=== PATIENT | female | born 1945 | race Caucasian/White ===

== ENCOUNTER 2017-02-09 05:52 | Inpatient (IN) | payer OTHER ==
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
[2017-02-09] MEDS ORDERED: ONDANSETRON 4 MG/2 ML VIAL ONE (06:14)
[2017-02-09] MEDS ORDERED: dilTIAZem HCL 125 MG/25 ML - 25 ML VIAL ONE ×3 (06:15→10:08)
[2017-02-09 06:21] LABS: BASOPHIL 0.6 % (0-2.0); EOSINOPHIL 2.7 % (0-4.5); MCHC 33.7 g/dl (32.0-36.0); MEAN CELL VOLUME 91.9 fl (80-96); MEAN PLT VOLUME 8.9 fl (7.5-11.1); NEUTROPHILS 73.9 % (42.8-82.8); PLATELET COUNT 196 K/MM3 (134-434); RDW 13.7 % (11.6-15.6); WHITE BLOOD COUNT 7.8 K/mm3 (4.0-10.0)
[2017-02-09 06:34] LABS: INR 1.27 (0.82-1.09)
[2017-02-09 06:43] LABS: ALBUMIN 3.6 g/dl (3.4-5.0); ANION GAP 8 (8-16); BILIRUBIN,TOTAL 0.4 mg/dL (0.2-1.0); CALCIUM 8.7 mg/dL (8.5-10.1); CO2 28 mmol/L (21-32); CREATININE 0.7 mg/dL (0.55-1.02); GLUCOSE,RANDOM 127 mg/dL (74-106); MAGNESIUM 1.9 mg/dL (1.8-2.4); SGOT/AST 20 U/L (15-37); SGPT/ALT 25 U/L (12-78); TOT PROT 6.6 g/dl (6.4-8.2)
[2017-02-09 06:46] LABS: ALK PHOS 154 U/L (45-117); TROPONIN I < 0.02 ng/ml (0.00-0.05)
[2017-02-09] MEDS ORDERED: dilTIAZem HCL 50 MG/10 ML - 10 ML VIAL IVPUSH ONE ×2 (07:03→10:05)
[2017-02-09] MEDS ORDERED: dilTIAZem HCL 30 MG TABLET (FP) PO ONE (07:03)
[2017-02-09] MEDS ORDERED: dilTIAZem HCL 30 MG TABLET (FP) ONE (07:17)
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
[2017-02-09] MEDS ORDERED: ACETAMINOPHEN 650 MG SUPP.RECT PR PRN (10:55)
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
[2017-02-09 11:32] VITALS: BMI 36.9
--- NOTE | 2017-02-09 11:42 | EKG ---
Test Reason : Blood Pressure : / mmHG Vent. Rate : 095 BPM Atrial Rate : 086 BPM P-R Int : 000 ms QRS Dur : 088 ms QT Int : 358 ms P-R-T Axes : 000 066 070 degrees QTc Int : 449 ms ATRIAL FIBRILLATION ABNORMAL ECG WHEN COMPARED WITH ECG OF 15-JUN-2007 09:21, ATRIAL FIBRILLATION HAS REPLACED SINUS RHYTHM VENT. RATE HAS INCREASED BY 35 BPM NONSPECIFIC T WAVE ABNORMALITY NOW EVIDENT IN LATERAL LEADS Confirmed by JENNIFER MOSER MD ([id number]) on 02/09/2017 11:42:07 AM Referred By: Confirmed By:JENNIFER MOSER MD
[2017-02-09 11:55] LABS: THYROID STIMULATING HORMONE 1.77 uIU/ml (0.358-3.74); TROPONIN I 0.04 ng/ml (0.00-0.05)
[2017-02-09] MEDS: predniSONE 5 MG TABLET (UD) PO SCH (12:06)
[2017-02-09] MEDS: LEVOTHYROXINE NA 112 MCG TABLET (FP) PO SCH (12:08)
[2017-02-09] MEDS: HYDROXYCHLOROQUINE SO4 200 MG TABLET (FP) PO SCH (12:11)
[2017-02-09] MEDS: APIXABAN 5 MG TABLET PO SCH ×2 (12:12→21:09)
[2017-02-09] MEDS: LEFLUNOMIDE 10 MG TABLET PO SCH (12:14)
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
[2017-02-09] MEDS ORDERED: FUROSEMIDE 40 MG TABLET (FP) PO ONE (14:15)
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
[2017-02-09] MEDS ORDERED: ALPRAZolam 0.25 MG TABLET PO PRN (15:02)
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
[2017-02-09] MEDS ORDERED: METOPROLOL TARTRATE 50 MG TABLET (FP) PO ONE (16:05)
[2017-02-09] MEDS ORDERED: dilTIAZem HCL 125 MG/25 ML - 5 ML VIAL ONE (16:18)
[2017-02-09] MEDS: DILTIAZEM INJECTION 125 MG in DEXTROSE 5%-WATER - 100 ML IVPB SCH (16:30)
[2017-02-09] MEDS: PANTOPRAZOLE 40 MG TABLET (FP) PO SCH (17:37)
[2017-02-09] MEDS ORDERED: PT OWN MED DRAWER 7, Y5N ONE (21:06)
[2017-02-09] MEDS: METOPROLOL TARTRATE 50 MG TABLET (FP) PO SCH (21:09)
[2017-02-09] MEDS: ATORVASTATIN CA 20 MG TABLET (FP) PO SCH (21:09)
[2017-02-09] MEDS: CHLORHEXIDINE GLUCONATE 4% CLEANSER FOR DECOLONIZATION TP SCH (21:09)
[2017-02-09] MEDS: MUPIROCIN 2% TOPICAL OINTMENT FOR DECOLONIZATION NS SCH (21:09)
[2017-02-09] MEDS ORDERED: METOPROLOL SUCCINATE 25 MG TAB.SR.24H (FP) PO SCH (22:00)
[2017-02-09] MEDS ORDERED: METOPROLOL SUCCINATE 50 MG TAB.SR.24H (FP) PO SCH (22:00)
[2017-02-09 23:08] LABS: URINE APPEARANCE CLEAR; URINE BILIRUBIN NEGATIVE (NEGATIVE); URINE BLOOD NEGATIVE (NEGATIVE); URINE COLOR COLORLESS; URINE GLUCOSE (UA) NEGATIVE (NEGATIVE); URINE KETONE NEGATIVE (NEGATIVE); URINE LEUK ESTERASE NEGATIVE (NEGATIVE); URINE NITRITE NEGATIVE (NEGATIVE); URINE PROTEIN NEGATIVE (NEGATIVE); URINE UROBILINOGEN NEGATIVE E.U./dl (0.2-1.0)
[2017-02-10 06:28] LABS: ALBUMIN 3.2 g/dl (3.4-5.0); ALK PHOS 130 U/L (45-117); ANION GAP 4 (8-16); BILIRUBIN,TOTAL 0.5 mg/dL (0.2-1.0); CALCIUM 9.4 mg/dL (8.5-10.1); CHOLESTEROL 154 mg/dL (50-200); CO2 34 mmol/L (21-32); CREATININE 0.8 mg/dL (0.55-1.02); GLUCOSE,RANDOM 113 mg/dL (74-106); LDL CHOLESTEROL (ONLY SJRH) 84 mg/dL (5-100); SGOT/AST 19 U/L (15-37); SGPT/ALT 21 U/L (12-78); TROPONIN I < 0.02 ng/ml (0.00-0.05)
[2017-02-10] MEDS ORDERED: PT OWN MED DRAWER 7, Y5N ONE ×2 (06:38→08:52)
[2017-02-10] MEDS: LEVOTHYROXINE NA 112 MCG TABLET (FP) PO SCH (06:47)
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
[2017-02-10] MEDS: HYDROXYCHLOROQUINE SO4 200 MG TABLET (FP) PO SCH (09:11)
[2017-02-10] MEDS: LEFLUNOMIDE 10 MG TABLET PO SCH (09:12)
[2017-02-10] MEDS: METOPROLOL TARTRATE 50 MG TABLET (FP) PO SCH ×4 (09:13→21:30)
[2017-02-10] MEDS: APIXABAN 5 MG TABLET PO SCH ×2 (09:13→21:25)
[2017-02-10] MEDS: predniSONE 5 MG TABLET (UD) PO SCH (09:13)
[2017-02-10] MEDS: PANTOPRAZOLE 40 MG TABLET (FP) PO SCH (09:13)
[2017-02-10] MEDS: MUPIROCIN 2% TOPICAL OINTMENT FOR DECOLONIZATION NS SCH ×2 (09:25→21:27)
--- NOTE | 2017-02-10 09:33 | PN ---
Progress Note, Physician History of Present Illness: FEELS BETTER - Current Medication List Current Medications: Active Medications Acetaminophen (Tylenol Suppository -) 650 mg NE Q4H PRN PRN Reason: FEVER OR PAIN Alprazolam (Xanax -) 0.25 mg PO Q6H PRN PRN Reason: ANXIETY Last Admin: 02/09/17 15:20 Dose: 0.25 mg Apixaban (Eliquis -) 5 mg PO BID [facility] Last Admin: 02/10/17 09:13 Dose: 5 mg Atorvastatin Calcium (Lipitor -) 20 mg PO HS [facility] Last Admin: 02/09/17 21:09 Dose: 20 mg Betamethasone Valerate (Valisone 0.1% Ointment -) 1 applic TP BID [facility] Chlorhexidine Gluconate (Hibiclens For Decolonization -) 1 applic TP HS [facility] Last Admin: 02/09/17 21:09 Dose: 1 applic Duloxetine HCl (Cymbalta -) 60 mg PO DAILY [facility] Hydroxychloroquine Sulfate (Plaquenil -) 400 mg PO DAILY [facility] Last Admin: 02/10/17 09:11 Dose: Not Given Diltiazem HCl 125 mg/ Dextrose 125 mls @ 5 mls/hr IVPB TITR BILL; 5 MG/HR PRN Reason: Protocol Last Admin: 02/09/17 16:30 Dose: 5 mls/hr Leflunomide (Arava -) 10 mg PO DAILY [facility] Last Admin: 02/10/17 09:12 Dose: 10 mg Levothyroxine Sodium (Synthroid -) 112 mcg PO DAILY@0700 [facility] Last Admin: 02/10/17 06:47 Dose: 112 mcg Metoprolol Tartrate (Lopressor -) 50 mg PO BID [facility] Last Admin: 02/10/17 09:13 Dose: 50 mg Mupirocin (Bactroban Ointment (For Decolonization) -) 1 applic NS BID [facility] Stop: 02/14/17 21:59 Last Admin: 02/10/17 09:25 Dose: 1 applic Pantoprazole Sodium (Protonix -) 40 mg PO DAILY [facility] Last Admin: 02/10/17 09:13 Dose: 40 mg Prednisone (Deltasone -) 5 mg PO DAILY [facility] Last Admin: 02/10/17 09:13 Dose: 5 mg - Objective Vital Signs: Vital Signs Temperature 98.2 F 02/10/17 08:00 Pulse Rate 106 H 02/10/17 08:00 Respiratory Rate 18 02/10/17 08:00 Blood Pressure 107/93 02/10/17 08:00 O2 Sat by Pulse Oximetry (%) 100 02/10/17 08:00 Cardiovascular: Yes: Tachycardia, Pulse Irregular, S1, S2 Respiratory: Yes: Regular, CTA Bilaterally Gastrointestinal: Yes: Normal Bowel Sounds, Soft Labs: CBC, BMP 02/10/17 05:30 INR, PTT INR 1.27 (0.82-1.09) H 02/09/17 06:06 Problem List - Problems (1) Atrial fibrillation with rapid ventricular response Assessment/Plan: CONTINUE WITH ELIQUIS INCREASE METOPROLOL TO 100 BID CARDIZEM DRIP CARDIO ON BOAED CE/TSH Code(s): I48.91 - UNSPECIFIED ATRIAL FIBRILLATION (2) HTN (hypertension) Assessment/Plan: MONITOR Code(s): I10 - ESSENTIAL (PRIMARY) HYPERTENSION (3) Obesity Code(s): E66.9 - OBESITY, UNSPECIFIED (4) Lung nodule Assessment/Plan: CT OF CHEST NOTED--NO NODULES Code(s): R91.1 - SOLITARY PULMONARY NODULE
[2017-02-10] MEDS: BETAMETHASONE VALER 0.1% OINT 15 GM TUBE TP SCH ×2 (10:24→21:24)
[2017-02-10] MEDS ORDERED: dilTIAZem HCL 125 MG/25 ML - 5 ML VIAL ONE (10:34)
[2017-02-10] MEDS: DILTIAZEM INJECTION 125 MG in DEXTROSE 5%-WATER - 100 ML IVPB SCH (10:41)
--- NOTE | 2017-02-10 11:34 | EKG ---
Test Reason : Blood Pressure : / mmHG Vent. Rate : 095 BPM Atrial Rate : 468 BPM P-R Int : 000 ms QRS Dur : 084 ms QT Int : 408 ms P-R-T Axes : 000 079 084 degrees QTc Int : 512 ms ATRIAL FIBRILLATION PROLONGED QT ABNORMAL ECG WHEN COMPARED WITH ECG OF 09-FEB-2017 06:02, NONSPECIFIC T WAVE ABNORMALITY NO LONGER EVIDENT IN LATERAL LEADS QT HAS LENGTHENED Confirmed by CHON NEGRON, JOHANNY ([id number]) on 02/10/2017 11:34:25 AM Referred By: MARIBEL DAO Confirmed By:JOHANNY GIVENS MD
[2017-02-10] MEDS ORDERED: HYDROCORTISONE VALERATE 0.2% CREAM 15 G TUBE TP PRN (11:39)
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
[2017-02-10] MEDS ORDERED: DILTIAZEM INJECTION 125 MG in DEXTROSE 5%-WATER - 100 ML IVPB SCH (15:41)
--- NOTE | 2017-02-10 15:53 | PN ---
Teaching Attending Note Name of Resident: Sin Thomas ATTENDING PHYSICIAN STATEMENT I saw and evaluated the patient. I reviewed the resident's note and discussed the case with the resident. I agree with the resident's findings and plan as documented. SUBJECTIVE: Patient seen and examined in the ICU. Awake and alert. No CP or SOB. Remains on IV Cardizem for rate control. Intake & Output 02/07/17 02/08/17 02/09/17 02/10/17 23:59 23:59 23:59 23:59 Intake Total 540 760 Balance 540 760 Weight 222 lb 2 oz 218 lb 8 oz Last Vital Signs Temp Pulse Resp BP Pulse Ox 98.1 F 87 18 108/65 100 02/10/17 14:00 02/10/17 14:00 02/10/17 14:00 02/10/17 14:00 02/10/17 08:00 Active Medications Acetaminophen (Tylenol Suppository -) 650 mg [place] Q4H PRN PRN Reason: FEVER OR PAIN Alprazolam (Xanax -) 0.25 mg PO Q6H PRN PRN Reason: ANXIETY Last Admin: 02/09/17 15:20 Dose: 0.25 mg Apixaban (Eliquis -) 5 mg PO BID [facility] Last Admin: 02/10/17 09:13 Dose: 5 mg Atorvastatin Calcium (Lipitor -) 20 mg PO HS [facility] Last Admin: 02/09/17 21:09 Dose: 20 mg Betamethasone Valerate (Valisone 0.1% Ointment -) 1 applic TP BID [facility] Last Admin: 02/10/17 10:24 Dose: 1 applic Chlorhexidine Gluconate (Hibiclens For Decolonization -) 1 applic TP HS [facility] Last Admin: 02/09/17 21:09 Dose: 1 applic Duloxetine HCl (Cymbalta -) 60 mg PO DAILY [facility] Hydrocortisone Valerate (Westcort 0.2% Cream -) 1 applic TP BID PRN PRN Reason: FOR ITCHING Hydroxychloroquine Sulfate (Plaquenil -) 400 mg PO DAILY [facility] Last Admin: 02/10/17 09:11 Dose: Not Given Diltiazem HCl 125 mg/ Dextrose 125 mls @ 5 mls/hr IVPB TITR BILL; 5 MG/HR PRN Reason: Protocol Leflunomide (Arava -) 10 mg PO DAILY [facility] Last Admin: 02/10/17 09:12 Dose: 10 mg Levothyroxine Sodium (Synthroid -) 112 mcg PO DAILY@0700 [facility] Last Admin: 02/10/17 06:47 Dose: 112 mcg Metoprolol Tartrate (Lopressor -) 100 mg PO BID [facility] Last Admin: 02/10/17 12:42 Dose: 50 mg Mupirocin (Bactroban Ointment (For Decolonization) -) 1 applic NS BID [facility] Stop: 02/14/17 21:59 Last Admin: 02/10/17 09:25 Dose: 1 applic Pantoprazole Sodium (Protonix -) 40 mg PO DAILY [facility] Last Admin: 02/10/17 09:13 Dose: 40 mg Prednisone (Deltasone -) 5 mg PO DAILY [facility] Last Admin: 02/10/17 09:13 Dose: 5 mg General: Awake and alert, NAD Neck: Yes: Supple Cardiovascular: Yes: Tachycardia, Pulse Irregular, S1, S2 Respiratory: Yes: Regular, CTA Bilaterally Gastrointestinal: Yes: Normal Bowel Sounds, Soft. No: Tenderness Edema: No Laboratory Results - last 24 hr 02/09/17 02/10/17 16:00 05:30 Sodium 145 Potassium 4.7 D Chloride 107 Carbon Dioxide 34 H D Anion Gap 4 L BUN 14 Creatinine 0.8 Creat Clearance w eGFR > 60 Random Glucose 113 H Calcium 9.4 Total Bilirubin 0.5 D AST 19 ALT 21 Alkaline Phosphatase 130 H Creatine Kinase 44 Troponin I < 0.02 Total Protein 6.0 L Albumin 3.2 L Triglycerides 71 Cholesterol 154 Total LDL Cholesterol 84 HDL Cholesterol 66 H Urine Color Colorless Urine Appearance Clear Urine pH 6.0 Ur Specific [place] 1.005 Urine Protein Negative Urine Glucose (UA) Negative Urine Ketones Negative Urine Blood Negative Urine Nitrite Negative Urine Bilirubin Negative Urine Urobilinogen Negative Ur Leukocyte Esterase Negative Problem List - Problems (1) Atrial fibrillation with rapid ventricular response Code(s): I48.91 - UNSPECIFIED ATRIAL FIBRILLATION (2) HTN (hypertension) Code(s): I10 - ESSENTIAL (PRIMARY) HYPERTENSION (3) Obesity Code(s): E66.9 - OBESITY, UNSPECIFIED (4) Lung nodule Code(s): R91.1 - SOLITARY PULMONARY NODULE PLAN: O2 as needed Lasix as needed Cardiology follow up noted Titrate Metoprolol for rate control Telemetry monitoring Dr Zee
[2017-02-10] MEDS: DULoxetine HCL 30 MG CAPSULE.DR (FP) PO SCH (21:24)
[2017-02-10] MEDS: ATORVASTATIN CA 20 MG TABLET (FP) PO SCH (21:25)
[2017-02-10] MEDS: CHLORHEXIDINE GLUCONATE 4% CLEANSER FOR DECOLONIZATION TP SCH (21:27)
[2017-02-11 05:37] LABS: BASOPHIL 0.6 % (0-2.0); EOSINOPHIL 3.3 % (0-4.5); MCH 30.8 pg (25.7-33.7); MCHC 33.5 g/dl (32.0-36.0); MEAN CELL VOLUME 91.7 fl (80-96); MEAN PLT VOLUME 8.7 fl (7.5-11.1); NEUTROPHILS 66.3 % (42.8-82.8); PLATELET COUNT 179 K/MM3 (134-434); RDW 13.5 % (11.6-15.6); WHITE BLOOD COUNT 7.3 K/mm3 (4.0-10.0)
[2017-02-11 05:56] LABS: CALCIUM 9.3 mg/dL (8.5-10.1); CREATININE 0.8 mg/dL (0.55-1.02); MAGNESIUM 1.9 mg/dL (1.8-2.4)
[2017-02-11] MEDS: LEVOTHYROXINE NA 112 MCG TABLET (FP) PO SCH (06:51)
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
[2017-02-11] MEDS ORDERED: METOPROLOL TARTRATE 5 MG/5 ML VIAL IVPUSH ONE (08:12)
[2017-02-11] MEDS: METOPROLOL TARTRATE 50 MG TABLET (FP) PO SCH ×3 (08:19→21:51)
--- NOTE | 2017-02-11 09:00 | PN ---
Progress Note, Physician History of Present Illness: FEELS BETTER HR HIGH LAST NIGHT--GIVEN CARDIZEM IVP HR NOW 120-130 - Current Medication List Current Medications: Active Medications Acetaminophen (Tylenol Suppository -) 650 mg [place] Q4H PRN PRN Reason: FEVER OR PAIN Alprazolam (Xanax -) 0.25 mg PO Q6H PRN PRN Reason: ANXIETY Last Admin: 02/09/17 15:20 Dose: 0.25 mg Apixaban (Eliquis -) 5 mg PO BID [facility] Last Admin: 02/10/17 21:25 Dose: 5 mg Atorvastatin Calcium (Lipitor -) 20 mg PO HS [facility] Last Admin: 02/10/17 21:25 Dose: 20 mg Betamethasone Valerate (Valisone 0.1% Ointment -) 1 applic TP BID [facility] Last Admin: 02/10/17 21:24 Dose: 1 applic Chlorhexidine Gluconate (Hibiclens For Decolonization -) 1 applic TP HS [facility] Last Admin: 02/10/17 21:27 Dose: 1 applic Diltiazem HCl (Cardizem Cd -) 120 mg PO DAILY [facility] Duloxetine HCl (Cymbalta -) 60 mg PO DAILY [facility] Last Admin: 02/10/17 21:24 Dose: 60 mg Hydrocortisone Valerate (Westcort 0.2% Cream -) 1 applic TP BID PRN PRN Reason: FOR ITCHING Hydroxychloroquine Sulfate (Plaquenil -) 400 mg PO DAILY [facility] Last Admin: 02/10/17 09:11 Dose: Not Given Diltiazem HCl 125 mg/ Dextrose 125 mls @ 5 mls/hr IVPB TITR BILL; 5 MG/HR PRN Reason: Protocol Last Admin: 02/10/17 15:41 Dose: Not Given Leflunomide (Arava -) 10 mg PO DAILY [facility] Last Admin: 02/10/17 09:12 Dose: 10 mg Levothyroxine Sodium (Synthroid -) 112 mcg PO DAILY@0700 [facility] Last Admin: 02/11/17 06:51 Dose: 112 mcg Metoprolol Tartrate (Lopressor -) 100 mg PO BID [facility] Last Admin: 02/11/17 08:19 Dose: 100 mg Mupirocin (Bactroban Ointment (For Decolonization) -) 1 applic NS BID [facility] Stop: 02/14/17 21:59 Last Admin: 02/10/17 21:27 Dose: 1 applic Pantoprazole Sodium (Protonix -) 40 mg PO DAILY [facility] Last Admin: 02/10/17 09:13 Dose: 40 mg Prednisone (Deltasone -) 5 mg PO DAILY [facility] Last Admin: 02/10/17 09:13 Dose: 5 mg - Objective Vital Signs: Vital Signs Temperature 98.6 F 02/11/17 06:00 Pulse Rate 130 H 02/11/17 08:30 Respiratory Rate 20 02/11/17 06:00 Blood Pressure 126/89 02/11/17 08:30 O2 Sat by Pulse Oximetry (%) 100 02/10/17 20:00 Cardiovascular: Yes: Tachycardia, Pulse Irregular, S1, S2 Respiratory: Yes: Regular, CTA Bilaterally Gastrointestinal: Yes: Normal Bowel Sounds, Soft Labs: CBC, BMP 02/11/17 05:10 02/11/17 05:10 INR, PTT INR 1.27 (0.82-1.09) H 02/09/17 06:06 Problem List - Problems (1) Atrial fibrillation with rapid ventricular response Assessment/Plan: CONTINUE WITH ELIQUIS INCREASE METOPROLOL TO 100 BID OFF CARDIZEM DRIP--START CARDIZEM PO CARDIO ON BOARD CE/TSH Code(s): I48.91 - UNSPECIFIED ATRIAL FIBRILLATION (2) HTN (hypertension) Assessment/Plan: MONITOR Code(s): I10 - ESSENTIAL (PRIMARY) HYPERTENSION (3) Obesity Code(s): E66.9 - OBESITY, UNSPECIFIED (4) Lung nodule Assessment/Plan: CT OF CHEST NOTED--NO NODULES Code(s): R91.1 - SOLITARY PULMONARY NODULE
[2017-02-11] MEDS ORDERED: PT OWN MED DRAWER 7, Y5N ONE (09:27)
[2017-02-11] MEDS: HYDROXYCHLOROQUINE SO4 200 MG TABLET (FP) PO SCH ×2 (09:50→10:00)
[2017-02-11] MEDS: APIXABAN 5 MG TABLET PO SCH ×2 (09:50→21:51)
[2017-02-11] MEDS: predniSONE 5 MG TABLET (UD) PO SCH (09:52)
[2017-02-11] MEDS: PANTOPRAZOLE 40 MG TABLET (FP) PO SCH (09:52)
[2017-02-11] MEDS: LEFLUNOMIDE 10 MG TABLET PO SCH (09:53)
[2017-02-11] MEDS: MUPIROCIN 2% TOPICAL OINTMENT FOR DECOLONIZATION NS SCH (09:54)
[2017-02-11] MEDS: BETAMETHASONE VALER 0.1% OINT 15 GM TUBE TP SCH (09:55)
[2017-02-11] MEDS: DULoxetine HCL 30 MG CAPSULE.DR (FP) PO SCH ×3 (09:57→21:51)
[2017-02-11] MEDS ORDERED: dilTIAZem HCL 30 MG TABLET (FP) PO SCH ×2 (10:00→14:00)
--- NOTE | 2017-02-11 11:31 | PN ---
Teaching Attending Note Name of Resident: Sin Thomas ATTENDING PHYSICIAN STATEMENT I saw and evaluated the patient. I reviewed the resident's note and discussed the case with the resident. I agree with the resident's findings and plan as documented. SUBJECTIVE: Pt seen and examined in the ICU. Off cardizem gtt. Heart rates variable but mostly controlled. Denies shortness of breath, chest pain or palpitations. OBJECTIVE: Last Vital Signs Temp Pulse Resp BP Pulse Ox 98.6 F 130 H 20 126/89 100 02/11/17 06:00 02/11/17 08:30 02/11/17 09:00 02/11/17 08:30 02/10/17 20:00 Intake & Output 02/08/17 02/09/17 02/10/17 02/11/17 23:59 23:59 23:59 23:59 Intake Total 540 1410 100 Balance 540 1410 100 Weight 222 lb 2 oz 218 lb 8 oz 218 lb 14.4 oz Gen: NAD at rest Heart: irregular, tachycardic Lung: decreased breath sounds at the bases Abd: soft, nontender Ext: no edema CBC, BMP 02/11/17 05:10 02/11/17 05:10 Active Medications Acetaminophen (Tylenol Suppository -) 650 mg [place] Q4H PRN PRN Reason: FEVER OR PAIN Alprazolam (Xanax -) 0.25 mg PO Q6H PRN PRN Reason: ANXIETY Last Admin: 02/09/17 15:20 Dose: 0.25 mg Apixaban (Eliquis -) 5 mg PO BID [facility] Last Admin: 02/11/17 09:50 Dose: 5 mg Atorvastatin Calcium (Lipitor -) 20 mg PO [facility] Last Admin: 02/10/17 21:25 Dose: 20 mg Betamethasone Valerate (Valisone 0.1% Ointment -) 1 applic TP BID [facility] Last Admin: 02/11/17 09:55 Dose: 1 applic Chlorhexidine Gluconate (Hibiclens For Decolonization -) 1 applic TP HS [facility] Last Admin: 02/10/17 21:27 Dose: 1 applic Diltiazem HCl (Cardizem -) 30 mg PO QID [facility] Last Admin: 02/11/17 09:58 Dose: 30 mg Duloxetine HCl (Cymbalta -) 60 mg PO DAILY [facility] Last Admin: 02/11/17 10:02 Dose: Not Given Hydrocortisone Valerate (Westcort 0.2% Cream -) 1 applic TP BID PRN PRN Reason: FOR ITCHING Hydroxychloroquine Sulfate (Plaquenil -) 400 mg PO DAILY [facility] Last Admin: 02/11/17 10:00 Dose: Not Given Leflunomide (Arava -) 10 mg PO DAILY [facility] Last Admin: 02/11/17 09:53 Dose: 10 mg Levothyroxine Sodium (Synthroid -) 112 mcg PO DAILY@0700 [facility] Last Admin: 02/11/17 06:51 Dose: 112 mcg Metoprolol Tartrate (Lopressor -) 100 mg PO BID [facility] Last Admin: 02/11/17 09:54 Dose: Not Given Mupirocin (Bactroban Ointment (For Decolonization) -) 1 applic NS BID [facility] Stop: 02/14/17 21:59 Last Admin: 02/11/17 09:54 Dose: 1 applic Pantoprazole Sodium (Protonix -) 40 mg PO DAILY [facility] Last Admin: 02/11/17 09:52 Dose: 40 mg Prednisone (Deltasone -) 5 mg PO DAILY [facility] Last Admin: 02/11/17 09:52 Dose: 5 mg ASSESSMENT AND PLAN: Atrial Fibrillation with RVR LV Systolic Dysfunction Mitral Regurgitation HTN Hypothyroidism Psoriatic Arthritis Fibromyalgia - titrating metoprolol, cardizem - continue anticoagulation - O2 as needed - telemetry monitoring
[2017-02-11] MEDS ORDERED: ACETAMINOPHEN 650 MG SUPP.RECT PR PRN (12:55)
[2017-02-11] MEDS ORDERED: ALPRAZolam 0.25 MG TABLET PO PRN (12:55)
[2017-02-11] MEDS ORDERED: HYDROCORTISONE VALERATE 0.2% CREAM 15 G TUBE TP PRN (12:55)
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
[2017-02-11] MEDS ORDERED: CHLORHEXIDINE GLUCONATE 4% CLEANSER FOR DECOLONIZATION TP SCH (22:00)
[2017-02-11] MEDS ORDERED: ATORVASTATIN CA 20 MG TABLET (FP) PO SCH (22:00)
[2017-02-11] MEDS ORDERED: BETAMETHASONE VALER 0.1% OINT 15 GM TUBE TP SCH (22:00)
[2017-02-11] MEDS ORDERED: MUPIROCIN 2% TOPICAL OINTMENT FOR DECOLONIZATION NS SCH (22:00)
[2017-02-11 23:34] VITALS: TEMP 98.4
[2017-02-12] MEDS ORDERED: LEVOTHYROXINE NA 112 MCG TABLET (FP) PO SCH (07:00)
[2017-02-12] MEDS: METOPROLOL TARTRATE 50 MG TABLET (FP) PO SCH (08:00)
[2017-02-12] MEDS ORDERED: PT OWN MED DRAWER 7, Y5N ONE (08:59)
[2017-02-12] MEDS: APIXABAN 5 MG TABLET PO SCH (09:16)
[2017-02-12] MEDS ORDERED: predniSONE 5 MG TABLET (UD) PO SCH (10:00)
[2017-02-12] MEDS ORDERED: DULoxetine HCL 30 MG CAPSULE.DR (FP) PO SCH (10:00)
[2017-02-12] MEDS ORDERED: LEFLUNOMIDE 10 MG TABLET PO SCH (10:00)
[2017-02-12] MEDS ORDERED: PANTOPRAZOLE 40 MG TABLET (FP) PO SCH (10:00)
[2017-02-12] MEDS ORDERED: HYDROXYCHLOROQUINE SO4 200 MG TABLET (FP) PO SCH (10:00)
[2017-02-12 10:01] VITALS: BP 135/99; PULSE 114
[2017-02-12] MEDS: DULoxetine HCL 30 MG CAPSULE.DR (FP) PO SCH (11:05)
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
--- NOTE | 2017-02-12 12:06 | CONSULT ---
Consult - text type - Consultation Consultation Note: CARDIOLOGY NO COMPLAINTS. DENIES CHEST PAIN, PALPITATIONS,DYSPNEA. ANXIOUS TO GO HOME. MEDICATIONS REVIEWED. HEART RATE 100/MINUTE. APPEARS WELL, NO DISTRESS. CLEAR LUNG ESCOBAR. S1 AND S2 NORMAL, IRREGULAR NO GALLOP. NO MURMUR AUDIBLE NO EDEMA. TELEMETRY ATRIAL FIBRILLATION VENTRICULAR RESPONSE 110/MINUTE ECHO: LV EF 40-45% MODERATE MITRAL REGURGITATION LA SIZE 4.1 CM. IMPRESSION: CHRONIC ATRIAL FIBRILLATION WITH MILD INCREASED VENTRICULAR RESPONSE. ADEQUATE ANTI THROMBOTIC THERAPY MILD DEPRESSION LV SYSTOLIC FUNCTION WITHOUT CLINICAL HEART FAILURE. SAFE FOR OUT PATIENT MANAGEMENT,. REC: OUT PATIENT CARDIOLOGY FOLLOW UP CONSIDER COREG TO REPLACE METOPROLOL CONSIDER DIGOXIN TO BE ADDED DEPENDANT ON VENTRICULAR RESPONSE. HOLTER MONITOR WHEN MEDICAL THERAPY STABLE TO INSURE ADEQUATE RATE CONTROL. FAMILY KEPT INFORMED. IMPORTANCE OF OUT PATIENT CARDIOLOGY FOLLOW UP EMPHASIZED.
== END 2017-02-12 14:00 | disposition home or self-care (01) | DRG 310 ==
LOC: JER 05:52 → JERBED 08:32 → JICU 09:33 → OBSVTOIN 10:55 → J4W 02-11 13:55
PROVIDERS: ADMIT Family Medicine; ATTEND Family Medicine
DX: I48.2 Chronic atrial fibrillation (principal); I10 Essential (primary) hypertension; E66.9 Obesity, unspecified; R91.1 Solitary pulmonary nodule; Z68.36 Body mass index [BMI] 36.0-36.9, adult; F41.9 Anxiety disorder, unspecified; E78.5 Hyperlipidemia, unspecified; M79.7 Fibromyalgia; E06.3 Autoimmune thyroiditis; L40.50 Arthropathic psoriasis, unspecified; M06.9 Rheumatoid arthritis, unspecified; I34.0 Nonrheumatic mitral (valve) insufficiency
CPT/HCPCS: 36415; 71010-TC; 71250-TC; 80048; 80053; 80061; 81003; 82550; 83721; 83735; 84100; 84443; 84484; 85025; 85610; 93005; 93010; 93306-TC; 99285-25; G0378

== ENCOUNTER 2019-02-25 12:35 | Emergency (ER) | payer OTHER ==
[2019-02-25 12:42] VITALS: BP 154/91; PULSE 91; TEMP 97; BMI 34.9
[2019-02-25] MEDS ORDERED: diazePAM 5 MG TABLET PO ONE (13:29)
[2019-02-25] MEDS ORDERED: KETOROLAC TROMETHAMINE 30 MG/1 ML VIAL IM ONE (13:29)
[2019-02-25] MEDS ORDERED: LIDOCAINE 5% TOPICAL PATCH TP ONE (13:31)
[2019-02-25] MEDS ORDERED: diazePAM 5 MG TABLET ONE (13:36)
[2019-02-25] MEDS ORDERED: KETOROLAC TROMETHAMINE 30 MG/1 ML VIAL ONE (13:37)
[2019-02-25] MEDS ORDERED: LIDOCAINE 5% TOPICAL PATCH ONE (13:37)
--- NOTE | 2019-02-25 13:41 | PDOC ---
History of Present Illness - General Chief Complaint: Back Pain Stated Complaint: LOWER BACK PAIN Time Seen by Provider: 02/25/19 12:58 History Source: Patient - History of Present Illness Initial Comments: 02/25/19 13:35 Patient is a 73 y/o female with a history of afib, fibromyalgia, and chronic back pain who presents for back pain. She reports she always has this pain but it has been worsening. She tried to take a muscle relaxer, tylenol, and gabapentin at home but without relief. She has to walk with a walker right now which she typically does not have to do. She denies incontinence, nausea, vomiting, fevers, or chills. She has no other complaints. She takes 30 mg of prednisone daily. The pain is at her back on the right side and she has a shooting pain down her right leg. She works at a computer all day. Past History - Past Medical History Allergies/Adverse Reactions: Allergies Allergy/AdvReac Type Severity Reaction Status Date / Time No Known Allergies Allergy Verified 02/25/19 12:41 Home Medications: Ambulatory Orders Apixaban [Eliquis -] 5 mg PO BID 02/09/17 Duloxetine HCl [Cymbalta] 30 mg PO BID 02/09/17 Levothyroxine [Synthroid -] 112 mcg PO DAILY 02/09/17 predniSONE [Deltasone -] 5 mg PO DAILY 02/09/17 Atorvastatin Ca [Lipitor] 20 mg PO HS #30 tablet 02/12/17 Diltiazem Cd [Cardizem Cd -] 120 mg PO DAILY #30 cap.cd.24h 02/12/17 Metoprolol Tartrate [Lopressor -] 100 mg PO BID #60 tablet 02/12/17 Pantoprazole Sodium [Protonix -] 40 mg PO DAILY #30 tablet.ec 02/12/17 Lidocaine Patch Removal [Lidoderm Patch Removal] 1 each MC DAILY@2200 #10 each 02/25/19 Cancer: No Cardiac Disorders: Yes (a fib) CVA: No COPD: No Dementia: No Diabetes: No GI Disorders: No Disorders: No HTN: Yes Hypercholesterolemia: Yes Liver Disease: No Seizures: No Thyroid Disease: Yes (hypo) - Surgical History Appendectomy: No Cardiac Surgery: No Cholecystectomy: No Lung Surgery: No Neurologic Surgery: No Orthopedic Surgery: No - Suicide/Smoking/Psychosocial Hx Smoking History: Never smoked Have you smoked in the past 12 months: No Hx Alcohol Use: No Drug/Substance Use Hx: No Substance Use Type: None Review of Systems - Review of Systems Constitutional: No: Chills, Diaphoresis HEENTM: No: Eye Pain Respiratory: No: Cough, Shortness of Breath Cardiac (ROS): No: Chest Pain, Edema ABD/GI: No: Diarrhea, Nausea, Vomiting : No: Dysuria Musculoskeletal: Yes: Back Pain, Joint Pain *Physical Exam - Vital Signs Last Vital Signs Temp Pulse Resp BP Pulse Ox 97 F L 91 H 18 154/91 98 02/25/19 12:37 02/25/19 12:37 02/25/19 12:37 02/25/19 12:37 02/25/19 12:37 - Physical Exam Comments: 02/25/19 13:40 GENERAL: A&O x3, no acute distress HEART: irregularly irregular, no murmurs or rubs LUNGS: CTAL B/L ABDOMEN: non distended, no tenderness, MSK: tenderness on the right lower back, patient sitting negative straight leg raise, ROM intact EXTREMITIES: no pitting tenderness SKIN: no rashes or ulcers noted ED Treatment Course - RADIOLOGY Radiology Studies Ordered: Category Date Time Status LUMBAR SPINE CT W/O CONTRAST [CT] Stat CT Scan 02/25/19 13:26 Ordered Medical Decision Making - Medical Decision Making 02/25/19 13:41 CT scan of lower lumbar spine toradol, valium, lidoderm patch discussed with pharmacist, one time toradol okay with elliquis use *DC/Admit/Observation/Transfer Diagnosis at time of Disposition: Posterior herniation of lumbar disc Degenerative disc disease Qualifiers: Spinal region: lumbar Qualified Code(s): M51.36 - Other intervertebral disc degeneration, lumbar region - Discharge Dispostion Disposition: HOME Condition at time of disposition: Good - Prescriptions Prescriptions: Lidocaine Patch Removal [Lidoderm Patch Removal] 1 each DAILY@2200 #10 each - Referrals Referrals: Marilu Frost MD [Non Staff, Medical] - Lashawn Serrano MD [Primary Care Provider] - Aditya Zhao DO [Staff Physician] - Robert Ordaz MD [Staff Physician] - - Patient Instructions Printed Discharge Instructions: Herniated Disc Additional Instructions: You came to the Emergency Department for pain in your back. We did imaging of your back which showed you have some disc herniations. THis is what is causing your back pain. To help your back pain please use: Lidoderm patch to the affected area for one day Please continue to use your home medications to help with the pain. You should not exceed 4000 mg of your muscle relaxant in one day. Do not drive or operate heavy machinery when taking your muscle relaxants. Continue to use tylenol to help with the pain, 650 mg every 4 hours by mouth as needed. Please make an appointment with your primary care physician within one week. Please make an appointment to follow up with the neurogsurgeon to review your spine in one week. Please return to the Emergency Department if you cannot control your bladder or bowel movements, have nausea, vomiting, headache, weakness in your legs, chest pain, or shortness of breath. - Post Discharge Activity
--- NOTE | 2019-02-25 16:29 | PDOC ---
Attending Attestation - Resident Resident Name: Sintia Rosario - ED Attending Attestation I have performed the following: I have examined & evaluated the patient, The case was reviewed & discussed with the resident, I agree w/resident's findings & plan - HPI HPI: 02/25/19 16:26 [id number], with significant past medical history of Afib (Eliquis, Metoprolol, and Cardizem), HTN, neuropathy, fibromyalgia, and Rheumatic Disease (on Prednisone) , presenting via EMS from home with, acute on chronic back pain, lower over right lumbar/buttock region. Patient endorses taking a muscle relaxer, Gabapentin, and Tylenol that was , without relief prompting her arrival to the ED. no trauma Denies any recent head/neck trauma or LOC. Denies fever, chills, chest pain, SOB , palpitation, dizziness, weakness, N, V, D, abdominal pain, bladder and bowel problems/retention/incontinence, leg swelling Allergies: NKDA Past Medical History: Afib (Eliquis, Metoprolol, and Cardizem), HTN, neuropathy , fibromyalgia, and Rheumatic Disease (on Prednisone) Social history: Lives with family. No smoking. No alcohol. No illicit drugs. Surgical history: None reported. PMD: Dr. Lashawn Serrano - Physicial Exam PE: 02/25/19 16:29 General: NAD, well appearing Abdomen: soft, nontender, obese Vascular: 2+ DP pulses symmetric and equal. Back: no midline tenderness, no stepoffs, FROM; +right buttock/paravertebral lumbar tenderness, Focused MSK/Neuro Exam notable for soft compartments, Cap refill <2 sec. Proximal and distal strength 5/5, practice billing associate strength 5/5 - equal and symmetric. Plantar flexion and dorsiflexion 5/5. FROM. Sensation grossly intact to light touch. No calf tenderness. 2+ patellar reflexes. neg SLR bilaterally. gait stable. ambulatory. no ataxia Skin: color normal color, warm and well perfused. 02/25/19 16:31 - Medical Decision Making 02/25/19 16:30 VS reviewed, wnl. no fever. well appearing and comfortable DDx back pain: back strain, lumbago, sciatica, radiculopathy, spinal stenosis. Muscle spasm. Lumbar radiculopathy. Clinically doubt based on exam and clinical history: cord compression or cauda equina, with low suspicion and NO red flag sx such as malignancy, weight loss, trauma, fevers, IVDU, lumbar/spinal procedures, bowel and bladder incontinence/ retention, urinary sx, neurologic deficits or changes. CT lumbar spine: severe degenerative disc disease, L3-4 disc herniation into spinal canal. spinal stenosis however, no midline tenderness, gait stable, no neuro deficits, NVI. pt wishes for discharge, which is appropriate spoke with Dr Ordaz about case, NSG cs - can f/u as outpatient. continued analgesia. return precautions. Pt to be discharged in stable condition. Patient and family made aware of impression and plan, return precautions discussed (including but not limited to worsening pain or symptoms), fevers, or signs of infection, chest pain, respiratory distress, inability to tolerate oral intake, dehydration, syncope, or neurologic changes). Follow up with PMD and/or specialist as recommended, follow up information provided, take medications as instructed for duration of time. continue with supportive care, avoid triggers and precipitants. All questions answered to patient's satisfaction and expressed understanding and comfort with this. Patient does not suffer from an acute life-threatening medical condition at this time she is safe for outpatient follow-up. 02/25/19 16:31
[2019-02-25] MEDS ORDERED: LIDOCAINE PATCH REMOVAL MC SCH (22:00)
== END 2019-02-25 16:35 | disposition home or self-care (01) ==
LOC: JER 12:35
PROC: 3E0233Z Introduction of Anti-inflammatory into Muscle, Percutaneous Approach (ICD-10-PCS; principal; 2019-02-25)
DX: M51.26 Other intervertebral disc displacement, lumbar region (principal); M51.36 Other intervertebral disc degeneration, lumbar region; I48.91 Unspecified atrial fibrillation; Z79.01 Long term (current) use of anticoagulants; I10 Essential (primary) hypertension; E78.00 Pure hypercholesterolemia, unspecified; E03.9 Hypothyroidism, unspecified
CPT/HCPCS: 72131-TC; 96372; 99281-25